=== PATIENT | male | born 1995 | race Caucasian/White ===

== ENCOUNTER 2016-03-21 11:36 | Emergency (ER) | payer OTHER ==
[~2016-03-21 11:36] MED LIST: CARAFATE1 G1 PO; CYCLOBENZAPRINE10 MG PO; FLEXERIL10 MG PO; HYDROXYZINE HCL25 MG PO; MEDROL DOSEPAK4 MG PO; MOTRIN600 MG PO; MOTRIN800 MG PO; Motrin,Rufen800 MG PO; PREDNISONE10 MG PO; TOPCARE OMEPRAZ20 MG PO; ZANTAC 300300 MG PO; ZOFRAN4 MG PO
[2016-03-21 12:14] VITALS: BP 158/88
[2016-03-21 12:34] LABS: BASO # 0.1 10*3/uL (0.0-0.1); BASO % 0.5 % (0.0-1.0); EOS # 1.3 10*3/uL (0.0-0.4); EOS % 9.3 % (1.0-4.0); HEMOGLOBIN 15.4 g/dl (14.0-18.0); LYMPH # 1.5 10*3/uL (1.3-4.4); LYMPH % 10.3 % (27.0-41.0); MEAN CORPUSCULAR HGB 28.7 pg (27.0-31.0); MEAN CORPUSCULAR HGB CONC 34.2 g/dl (33.0-37.0); MEAN PLATELET VOLUME 9.9 fl (9.6-12.3); MONO % 7.2 % (3.0-9.0); NEUT # 10.3 10*3/uL (2.3-7.9); NEUT % 72.4 % (47.0-73.0); PLATELET COUNT AUTOMATED 328 10*3/uL (130-400); RED BLOOD COUNT 5.36 10*6/uL (4.50-5.90); RED CELL DISTRI WIDTH 11.9 % (0-14.5); WHITE BLOOD COUNT 14.2 10*3/uL (4.8-10.8)
[2016-03-21 12:52] LABS: ALBUMIN 3.8 gm/dl (3.1-4.5); ALKALINE PHOSPHATASE 58 U/L (45-117); BILIRUBIN, TOTAL 0.4 mg/dl (0.2-1.0); BUN 11 mg/dl (7-24); CARBON DIOXIDE 29 mmol/L (21-32); CHLORIDE 104 mmol/L (98-107); EST GLOM FILT AFRICAN AMERICAN > 60 ml/min; GLUCOSE 106 mg/dL (65-99); POTASSIUM 4.4 mmol/L (3.5-5.1); SGOT/AST 17 IU/L (3-35); SGPT/ALT 43 U/L (12-78); SODIUM 140 mmol/L (136-145); TOTAL PROTEIN 7.8 gm/dL (6.4-8.2)
[2016-03-21 12:54] LABS: TROPONIN I < 0.015 ng/ml (<0.5)
[2016-03-21] MEDS ORDERED: ZITHROMAX250 MG PO (14:06)
[2016-03-21] MEDS ORDERED: ALBUTEROL2.5 MG/0.5 INH (14:06)
[2016-03-21] MEDS ORDERED: MEDROL DOSEPAK4 MG PO (14:06)
== END 2016-03-21 14:43 | disposition home or self-care (01) ==
LOC: ED 11:36
PROVIDERS: Nurse Practitioner Family
DX: J20.9 Acute bronchitis, unspecified (principal)

== ENCOUNTER 2018-11-12 14:06 | Emergency (ER) | payer SELFPAY ==
[~2018-11-12] VITALS: Wt 140.6 kg
[~2018-11-12 14:06] MED LIST changes: +ALBUTEROL2.5 MG/0.5 INH; +ZITHROMAX250 MG PO
[2018-11-12 14:08] VITALS: BP 122/57
== END 2018-11-12 16:03 | disposition home or self-care (01) ==
LOC: ED 14:06
DX: S52.125A Nondisplaced fracture of head of left radius, initial encounter for closed fracture (principal); W11.XXXA Fall on and from ladder, initial encounter; Y93.89 Activity, other specified; Y92.89 Other specified places as the place of occurrence of the external cause; Y99.9 Unspecified external cause status

== ENCOUNTER → 2018-12-02 | Outpatient (CLI) | payer SELFPAY | END | disposition home or self-care (01) | LOC: ORTHO 00:48 | DX: S52.125D Nondisplaced fracture of head of left radius, subsequent encounter for closed fracture with routine healing (principal); X58.XXXD Exposure to other specified factors, subsequent encounter ==

== ENCOUNTER 2019-02-20 06:48 | Emergency (ER) | payer SELFPAY ==
[~2019-02-20] VITALS: Ht 180.3 cm; Wt 140.6 kg
[2019-02-20 06:49] VITALS: BP 150/85
== END 2019-02-20 09:28 | disposition home or self-care (01) ==
LOC: ED 06:48
DX: S50.02XA Contusion of left elbow, initial encounter (principal); W10.8XXA Fall (on) (from) other stairs and steps, initial encounter; Y93.89 Activity, other specified; Y92.89 Other specified places as the place of occurrence of the external cause; Y99.8 Other external cause status

== ENCOUNTER 2019-03-07 20:20 | Emergency (ER) | payer SELFPAY ==
[~2019-03-07] VITALS: Ht 182.8 cm; Wt 1050.1 kg
[2019-03-07 20:24] VITALS: BP 136/71
[2019-03-07] MEDS ORDERED: FLONASE ALLERG9.9 ML NAS (21:26)
[2019-03-07] MEDS ORDERED: ZYRTEC10 MG PO (21:26)
[2019-03-07] MEDS ORDERED: AMOXICILLIN500 M2 PO (21:26)
== END 2019-03-07 21:42 | disposition home or self-care (01) ==
LOC: ED 20:20
DX: J32.0 Chronic maxillary sinusitis (principal); J32.1 Chronic frontal sinusitis; K08.89 Other specified disorders of teeth and supporting structures; J45.909 Unspecified asthma, uncomplicated

== ENCOUNTER 2019-07-23 18:23 | Emergency (ER) | payer SELFPAY ==
[~2019-07-23] VITALS: Ht 182.8 cm; Wt 140.6 kg
[~2019-07-23 18:23] MED LIST changes: +AMOXICILLIN500 M2 PO; +FLONASE ALLERG9.9 ML NAS; +ZYRTEC10 MG PO
[2019-07-23 18:30] VITALS: BP 138/97
[2019-07-23] MEDS ORDERED: Motrin,Rufen800 MG PO (20:19)
== END 2019-07-23 20:23 | disposition home or self-care (01) ==
LOC: ED 18:23
DX: S46.912A Strain of unspecified muscle, fascia and tendon at shoulder and upper arm level, left arm, initial encounter (principal); S59.902A Unspecified injury of left elbow, initial encounter; Z79.899 Other long term (current) drug therapy; X58.XXXA Exposure to other specified factors, initial encounter; Y93.89 Activity, other specified; Y92.89 Other specified places as the place of occurrence of the external cause; Y99.8 Other external cause status

== ENCOUNTER 2019-07-26 01:30 | Emergency (ER) | payer SELFPAY ==
[~2019-07-26] VITALS: Ht 182.8 cm; Wt 140.6 kg
[2019-07-26 01:35] VITALS: BP 141/85
== END 2019-07-26 02:43 | disposition home or self-care (01) ==
LOC: ED 01:30
DX: M25.512 Pain in left shoulder (principal); Z79.899 Other long term (current) drug therapy

== ENCOUNTER 2019-11-12 09:05 | Emergency (ER) | payer SELFPAY ==
[~2019-11-12] VITALS: Ht 182.8 cm; Wt 145.1 kg
[2019-11-12 09:10] VITALS: BP 148/83
[2019-11-12] MEDS ORDERED: PREDNISONE50 MG PO (10:43)
[2019-11-12] MEDS ORDERED: PROAIR HFA8.5 GM INH (10:43)
[2019-11-12] MEDS ORDERED: ZITHROMAX250 MG PO (10:43)
== END 2019-11-12 10:44 | disposition home or self-care (01) ==
LOC: ED 09:05
DX: J40 Bronchitis, not specified as acute or chronic (principal); Z79.899 Other long term (current) drug therapy

== ENCOUNTER 2019-11-17 22:09 | Inpatient (IN) | payer SELFPAY ==
[~2019-11-17] VITALS: Ht 182.8 cm; Wt 147.6 kg
[~2019-11-17 22:09] MED LIST changes: +PREDNISONE50 MG PO; +PROAIR HFA8.5 GM INH
[2019-11-17 22:15] VITALS: BP 178/97
[2019-11-17 22:51] LABS: BASO # 0.1 10*3/uL (0.0-0.1); BASO % 0.6 % (0.0-1.0); EOS # 1.7 10*3/uL (0.0-0.4); EOS % 10.4 % (1.0-4.0); HEMATOCRIT 43.4 % (42.0-52.0); LYMPH # 1.7 10*3/uL (1.3-4.4); LYMPH % 10.3 % (27.0-41.0); MEAN CELL VOLUME 86.8 fl (80.0-94.0); MEAN CORPUSCULAR HGB 28.6 pg (27.0-31.0); MEAN CORPUSCULAR HGB CONC 32.9 g/dl (33.0-37.0); MEAN PLATELET VOLUME 9.6 fl (9.6-12.3); MONO # 1.3 10*3/uL (0.1-1.0); MONO % 8.1 % (3.0-9.0); NEUT # 11.3 10*3/uL (2.3-7.9); NEUT % 70.1 % (47.0-73.0); PLATELET COUNT AUTOMATED 311 10*3/uL (130-400); WHITE BLOOD COUNT 16.1 10*3/uL (4.8-10.8)
[2019-11-17 23:09] LABS: ALBUMIN 3.7 gm/dl (3.1-4.5); ALKALINE PHOSPHATASE 49 U/L (45-117); BUN 15 mg/dl (7-24); CHLORIDE 106 mmol/L (98-107); CREATININE 1.12 mg/dL (0.70-1.30); POTASSIUM 3.5 mmol/L (3.5-5.1); SGOT/AST 19 IU/L (3-35); SGPT/ALT 49 U/L (12-78); SODIUM 141 mmol/L (136-145); TOTAL PROTEIN 7.3 gm/dL (6.4-8.2)
--- NOTE | 2019-11-18 00:38 | NUR ---
PT CONTINUES TO HAVE AUDIBLE INS AND EXPIRATORY WHEEZING AND HARSH COUGH. IVF AND MAG SULFATE INFUSING PER ORDERS. TELE MONITOR INTACT. CALL LIGHT IN REACH. NO FURTHER COMPLAINTS.
[2019-11-18 00:41] VITALS: BP 144/78
[2019-11-18 02:20] VITALS: BP 145/87
--- NOTE | 2019-11-18 02:20 | NUR ---
A 24, admitted to , under the services of TARAS Hernandez DO with a diagnosis of ASTHMA EXACERBATION. Chief complaint is SHORTNESS OF BREATH\. Patient arrived via bed from ER. Monitor applied. Initial assessment completed. Vital signs taken and recorded. TARAS HERNANDEZ DO notified of admission to the unit. Orders received. See assessment for past medical history, medications and allergies. Patient and/or family oriented to unit. [facility] visitation policy reviewed. Clothing/patient valuable form completed. FLY RAYMOND
--- NOTE | 2019-11-18 02:30 | NUR ---
PT TRANSFERRED TO FLOOR WITH IVF INFUSING PER ORDERS.
--- NOTE | 2019-11-18 02:45 | NUR ---
DR. VERDUZCO NOTIFIED OF COMPLETE HOME MEDICATIONS.
--- NOTE | 2019-11-18 04:53 | NUR ---
DR. BEVERLY NOTIFIED OF CRITICAL LACTIC OF 2.2.
--- NOTE | 2019-11-18 06:00 | NUR ---
IN TO SEE PT, PT LYING IN BED WITH EYES CLOSED. NO COMPLAINTS. CALL LIGHT IN REACH
[2019-11-18 08:00] VITALS: BP 151/63
--- NOTE | 2019-11-18 09:21 | NUR ---
CALLED IN AND IS RECOMMENDING PATIENT TO BE UNDER COVID PRECAUTIONS. PARTNERSHIP MANAGER SCOT NOTIFIED AT THIS TIME.
--- NOTE | 2019-11-18 09:27 | NUR ---
AWARE OF CONSULT.
--- NOTE | 2019-11-18 11:01 | NUR ---
PT ON THE FLOOR AT THIS TIME
--- NOTE | 2019-11-18 11:35 | NUR ---
ASSESSMENT COMPLETE WITHOUT INCIDENCE. PT DENIES BEING SOB AND STATES "I FEEL GOOD ENOUGH THAT I COULD TAKE OFF THE OXYGEN MASK". UPDATED PT ON WHY HE IS IN ISOLATION, HE HAS NO QUESTIONS AT THIS TIME. CALL LIGHT WITHIN REACH, WILL CONTINUE TO MONITOR
[2019-11-18 12:00] VITALS: BP 149/75
--- NOTE | 2019-11-18 13:03 | NUR ---
SPOKE TO DR PRICE REGARDING PT INFORMATION, WILL ADD ORDERS DESIRED
--- NOTE | 2019-11-18 13:08 | NUR ---
DR PRICE STATES TO BUMP O2 UP TO 5L NC, AND THEN CHECK ABG IN ONE HOUR
--- NOTE | 2019-11-18 13:09 | NUR ---
SPOKE TO BHAVIK FROM RESPIRATORY TO LET HER KNOW THAT THE OXYGEN IS MOVED UP TO 5L NC AND ABG AT 1400
[2019-11-18 14:32] LABS: ABG BASE EXCESS -0.5 mmol/L (-2.0-2.0); ARTERIAL BLOOD GAS PH 7.434 (7.35-7.45)
--- NOTE | 2019-11-18 15:18 | NUR ---
CALLED DR PRICE WITH ABG, LDH, D-DIMER AND FERRITIN RESULTS. HE STATES TO MAKE HIS LOVENOX BID. CONTINUE LABS TOMORROW
[2019-11-18 16:00] VITALS: BP 150/98
[2019-11-18 20:00] VITALS: BP 148/69
--- NOTE | 2019-11-18 21:25 | NUR ---
PATIENT COMPLIANT WITH PRONING
[2019-11-18 23:53] LABS: BILIRUBIN Negative; BLOOD Negative (NEGATIVE); CLARITY Clear (CLEAR); COLOR Yellow (YELLOW); GLUCOSE 1+; KETONE Negative; LEUKO ESTERASE Negative (NEGATIVE); NITRITE Negative (NEGATIVE); SPECIFIC GRAVITY 1.015 (1.001-1.030)
[2019-11-18 23:59] LABS: BACTERIA TRACE; EPITHELIAL CELLS 0-2; RBC 0-2 rbc/hpf (0-2); WBC 0-2 wbc/hpf (0-5)
[2019-11-19] VITALS: BP 151/85
[2019-11-19 06:17] LABS: HEMATOCRIT 44.4 % (42.0-52.0); MEAN CELL VOLUME 86.2 fl (80.0-94.0); MEAN CORPUSCULAR HGB CONC 32.4 g/dl (33.0-37.0); MEAN PLATELET VOLUME 9.8 fl (9.6-12.3); PLATELET COUNT AUTOMATED 349 10*3/uL (130-400); RED BLOOD COUNT 5.15 10*6/uL (4.50-5.90); RED CELL DISTRI WIDTH 12.4 % (0-14.5)
[2019-11-19 06:39] LABS: ALBUMIN 3.5 gm/dl (3.1-4.5); ALKALINE PHOSPHATASE 47 U/L (45-117); BUN 12 mg/dl (7-24); CHLORIDE 106 mmol/L (98-107); CHOLESTEROL 145 mg/dL (<200); CREATININE 0.88 mg/dL (0.70-1.30); HDL CHOLESTEROL 66 mg/dl (40-60); LDH 174 U/L (87-241); LDL CHOLESTEROL 65 mg/dL (9-159); SGOT/AST 15 IU/L (3-35); SGPT/ALT 51 U/L (12-78); SODIUM 138 mmol/L (136-145); TOTAL PROTEIN 7.3 gm/dL (6.4-8.2); TRIGLYCERIDES 72 mg/dl (<150); VLDL CHOLESTEROL 14 mg/dL (6-40)
[2019-11-19 06:54] LABS: PLATELET SUFFICIENCY NORMAL (NORMAL); TOTAL CELLS COUNTED 100 #CELLS
[2019-11-19 07:18] LABS: VITAMIN D, 25-HYDROXY 25.7 ng/mL (30-100)
[2019-11-19 07:19] LABS: FERRITIN 87.4 ng/mL (22.0-322.0)
[2019-11-19 08:00] VITALS: BP 114/82
--- NOTE | 2019-11-19 09:17 | NUR ---
Awake, alert and oriented. pleasent. Questioning when he would be discharged. stated he needed to let his employer know. Sputum obtained and sent.
[2019-11-19 12:00] VITALS: BP 139/80
[2019-11-19 16:00] VITALS: BP 158/92
[2019-11-19 20:00] VITALS: BP 145/70
--- NOTE | 2019-11-19 20:04 | NUR ---
Decreased pts O2 to 3L
[2019-11-19 23:51] VITALS: BP 140/64
[2019-11-20 05:49] LABS: ALBUMIN 3.5 gm/dl (3.1-4.5); ALKALINE PHOSPHATASE 47 U/L (45-117); BUN 13 mg/dl (7-24); CHLORIDE 105 mmol/L (98-107); CREATININE 0.89 mg/dL (0.70-1.30); POTASSIUM 3.5 mmol/L (3.5-5.1); SGOT/AST 11 IU/L (3-35); SGPT/ALT 46 U/L (12-78); SODIUM 140 mmol/L (136-145); TOTAL PROTEIN 7.5 gm/dL (6.4-8.2)
[2019-11-20 06:04] LABS: BASO % 0.2 % (0.0-1.0); EOS # 0.1 10*3/uL (0.0-0.4); EOS % 0.3 % (1.0-4.0); HEMATOCRIT 45.9 % (42.0-52.0); LYMPH # 2.1 10*3/uL (1.3-4.4); LYMPH % 12.2 % (27.0-41.0); MEAN CELL VOLUME 87.4 fl (80.0-94.0); MEAN CORPUSCULAR HGB 27.6 pg (27.0-31.0); MEAN CORPUSCULAR HGB CONC 31.6 g/dl (33.0-37.0); MEAN PLATELET VOLUME 9.8 fl (9.6-12.3); MONO # 1.2 10*3/uL (0.1-1.0); MONO % 7.1 % (3.0-9.0); NEUT # 13.9 10*3/uL (2.3-7.9); NEUT % 79.2 % (47.0-73.0); PLATELET COUNT AUTOMATED 351 10*3/uL (130-400); RED BLOOD COUNT 5.25 10*6/uL (4.50-5.90); RED CELL DISTRI WIDTH 12.6 % (0-14.5); WHITE BLOOD COUNT 17.5 10*3/uL (4.8-10.8)
[2019-11-20 08:00] VITALS: BP 132/88; BP 140/72
--- NOTE | 2019-11-20 09:00 | NUR ---
Nib Assembler in to talk to patient. Patient states lives at home with family. There are no steps in the home. Physician: none Pharmacy: [facility] Home health services: none Patient's level of ADLs: INDEPENDENT Patient has working utilities: all working DME: none Follow-up physician's appointment after d/c: will be made by hospitalist nurse director upon discharge Does patient want to access PORTAL?: no Discharge plan discussed with patient, he lives at home, is independent in adls and ambulation, works, drives, he stated he will return home when discharged and denies any home needs, case management will follow. RINKU DAWN
[2019-11-20 12:00] VITALS: BP 137/69
[2019-11-20 16:00] VITALS: BP 152/84
--- NOTE | 2019-11-20 19:56 | NUR ---
24 HR chart check completed.
[2019-11-20 20:00] VITALS: BP 148/85
--- NOTE | 2019-11-20 20:30 | NUR ---
RESTING IN BED. NO DISTRESS NOTED. RESPIRATIONS EASY. VSS. LUNGS DIMINISHED, CLEAR. PULSE OX 96% RA. INFREQUENT COUGH. CALL LIGHT WITHIN REACH. NO VOICED COMPLAINTS
[2019-11-21] VITALS: BP 159/79
--- NOTE | 2019-11-21 | NUR ---
RESTING IN BED WITH NO ACUTE DISTRESS NOTED. RESPIRATIONS EASY. PULSE OX 96% RA WITH CONT PULSE OX MAINTAINED. CALL LIGHT WITHIN REACH. NO VOICED COMPLAINTS
--- NOTE | 2019-11-21 06:00 | NUR ---
RESTED THROUGHOUT NIGHT WITH NO DISTRESS NOTED. RESPIRATIONS EASY. CONT PULSE OX WITH PATIENT MAINTAINING SATS >92% ON ROOM AIR. CALL LIGHT WITHIN REACH. NO VOICED COMPLAINTS THIS SHIFT
--- NOTE | 2019-11-21 07:42 | NUR ---
COVID CAME BACK NEGATIVE. PT PLACED INTO STANDARD PRECAUTIONS.
[2019-11-21 08:00] VITALS: BP 145/82
--- NOTE | 2019-11-21 09:00 | NUR ---
case management visits with patient, he will return home when discharged, denies any home needs
[2019-11-21] MEDS ORDERED: PREDNISONE10 MG PO (10:37)
[2019-11-21] MEDS ORDERED: VITAMIN D350 MC2 PO (10:37)
[2019-11-21] MEDS ORDERED: LEVOFLOXACIN500 MG PO (10:37)
--- NOTE | 2019-11-21 11:19 | NUR ---
Discharge instructions reviewed with patient/family. Patient receptive and verbalizes understanding. Follow-up care arranged. Written instructions given to patient/family. BIBI SOLIS
== END 2019-11-21 11:19 | disposition home or self-care (01) | DRG 871 ==
LOC: ED 22:09 → EDHOLD 11-18 01:56 → 4E 11-18 01:56 → 5E 11-18 02:05 → 4E 11-18 09:26
PROVIDERS: Emergency Medicine Emergency Medical Services; Family Medicine; Internal Medicine; Internal Medicine Critical Care Medicine; ADMIT Emergency Medicine; ATTEND Emergency Medicine
DX: A41.9 Sepsis, unspecified organism (principal); J18.9 Pneumonia, unspecified organism; J96.01 Acute respiratory failure with hypoxia; J45.41 Moderate persistent asthma with (acute) exacerbation; Z68.42 Body mass index [BMI] 45.0-49.9, adult; R65.20 Severe sepsis without septic shock; J20.9 Acute bronchitis, unspecified; F12.90 Cannabis use, unspecified, uncomplicated; E66.01 Morbid (severe) obesity due to excess calories; G47.33 Obstructive sleep apnea (adult) (pediatric); R73.9 Hyperglycemia, unspecified; Z20.828 Contact with and (suspected) exposure to other viral communicable diseases; Z83.3 Family history of diabetes mellitus; Z79.899 Other long term (current) drug therapy

== ENCOUNTER 2019-12-11 09:13 | Observation (INO) | payer SELFPAY ==
[~2019-12-11] VITALS: Ht 182.9 cm; Wt 151.1 kg
--- NOTE | 2019-12-11 11:29 | NUR ---
PT STATES IN HE FEELS BETTER AFTER TREATMENT.
--- NOTE | 2019-12-11 14:55 | NUR ---
Time: 1454 A 24 year old MALE admitted to 5E under services of HUONG MAS DO. Pt. arrived via wheel chair from ER. Chief complaint: SHORTNESS OF BREATH AND WHEEZING. CESAR BASS
--- NOTE | 2019-12-11 17:30 | NUR ---
SPOKE WITH REGARDING CONSULT AND ORDERS RECEIVED.
--- NOTE | 2019-12-11 19:30 | NUR ---
PATIENT RESTING IN BED WATCHING TV. AUDIBLE WHEEZES THROUGHOUT. C/O CLEAR PRODUCTIVE COUGH. BED IN LOWEST POSITION, CALL LIGHT IN REACH
--- NOTE | 2019-12-12 00:19 | NUR ---
OXYGEN INCREASED TO 4LITERS FOR PULSE OX 90%
--- NOTE | 2019-12-12 05:47 | NUR ---
PATIENT RESTED WELL THROUGH THE NIGHT. STATES HE IS FEELING A LITTLE BIT BETTER. DENIES NEEDS AT THIS TIME
--- NOTE | 2019-12-12 11:52 | NUR ---
Battalion Fire Chief in to talk to patient. Patient states lives at HOME with FATHER. There are 4 steps in the home. Physician: NONE AT THIS TIME Pharmacy: [facility] Home health services: NONE Patient's level of ADLs: INDEPENDENT Patient has working utilities: YES DME: NONE AT THIS TIME Follow-up physician's appointment after d/c: WILL FIND MD AFTER DISCHARGE Does patient want to access PORTAL?: NO Discharge plan PT LIVES AT HOME WITH HIS FATHER AND IS INDEPENDENT IN HIS CARE. STATES HE WAS SEEN BY [employer] IN [employer] FOR MEDICA[employer] AND HAS THE PAPER WORK TO FILL OUT. ALST STATES HE IS GOING TO TALK TO HIS EMPLOYER ABOUT GETTIING INSURANCE. PT HAS NO PCP AT THIS TIME. STATES HE WILL FIND ONE AFTER DISCHARGE. STATES HE MIGHT GO TO THE ONE HIS FATHER GOES TO. PT ALSO STATES HE HAS A CPAP MACHINE BUT IT GOT LOST IN A MOVE. HE ALSO THINKS HE NEEDS A NEBULIZER AND A PULSE OX BUT UNDERSTAND HE CAN NOT GET THINGS UNTIL HE HAS INSURANCE. WILL CONTINUE TO FOLLOW. STATES HE WILL HAVE A RIDE HOME.. BAM CARRANZA
--- NOTE | 2019-12-12 16:06 | NUR ---
PULSE OX ON R/A AT REST 93%. HEART RATE 118. B/P 144/68. PT. AMBULATED IN THE [place] ON R/A, PULSE OX WAS 94%. PT. TOLERATED WELL. RN NOTIFIED OF RESULTS. I WILL CALL DR. ARGUELLES WITH RESULTS.
[2019-12-13 08:00] VITALS: BP 150/72
--- NOTE | 2019-12-13 13:39 | NUR ---
Discharge instructions reviewed with patient. Patient receptive and verbalizes understanding. Follow-up care arranged. Written instructions given to patient. PATIENT DISCHARGED TO [facility], AMBULATORY, FOR TRANSPORT HOME BY PRIVATE VEHICLE WITH HIS FAMILY. LEANN MCDANIEL
== END 2019-12-13 20:06 | disposition home or self-care (01) ==
LOC: ED 09:13 → EDHOLD 12:04 → 5E 13:35
PROVIDERS: ADMIT Internal Medicine; ATTEND Internal Medicine
DX: J45.901 Unspecified asthma with (acute) exacerbation (principal); R00.0 Tachycardia, unspecified; D72.829 Elevated white blood cell count, unspecified; J96.00 Acute respiratory failure, unspecified whether with hypoxia or hypercapnia; R65.10 Systemic inflammatory response syndrome (SIRS) of non-infectious origin without acute organ dysfunction; E11.65 Type 2 diabetes mellitus with hyperglycemia

== ENCOUNTER 2019-12-16 11:11 | Emergency (ER) | payer SELFPAY ==
[~2019-12-16] VITALS: Ht 182.8 cm; Wt 145.1 kg
[~2019-12-16 11:11] MED LIST changes: +LEVOFLOXACIN500 MG PO; +VITAMIN D350 MC2 PO
[2019-12-16 11:18] VITALS: BP 156/92
[2019-12-16] MEDS ORDERED: IBUPROFEN600 MG PO (11:50)
== END 2019-12-16 13:01 | disposition home or self-care (01) ==
LOC: ED 11:11
DX: S23.41XA Sprain of ribs, initial encounter (principal); Z79.899 Other long term (current) drug therapy; X58.XXXA Exposure to other specified factors, initial encounter; Y93.89 Activity, other specified; Y92.89 Other specified places as the place of occurrence of the external cause; Y99.8 Other external cause status

== ENCOUNTER → 2020-01-05 | Outpatient (CLI) | payer SELFPAY ==
[~2020-01-05] MED LIST changes: +IBUPROFEN600 MG PO
== END | disposition home or self-care (01) ==
LOC: RESCLI 02:13
PROVIDERS: ATTEND Family Medicine
DX: J45.30 Mild persistent asthma, uncomplicated (principal); R73.03 Prediabetes; E66.01 Morbid (severe) obesity due to excess calories; Z76.89 Persons encountering health services in other specified circumstances; Z23 Encounter for immunization; Z68.42 Body mass index [BMI] 45.0-49.9, adult

== ENCOUNTER → 2020-12-13 | Outpatient (CLI) | payer OTHER | END | disposition home or self-care (01) | LOC: COVID19 15:09 | PROVIDERS: ATTEND Student in an Organized Health Care Education/Training Program | DX: U07.1 COVID-19 (principal) ==

== ENCOUNTER → 2021-12-11 | Outpatient (CLI) | payer OTHER | END | disposition home or self-care (01) | LOC: RESCLI 16:28 | PROVIDERS: ATTEND Emergency Medicine | DX: Z23 Encounter for immunization (principal); Z01.89 Encounter for other specified special examinations; J45.30 Mild persistent asthma, uncomplicated; E55.9 Vitamin D deficiency, unspecified; R73.09 Other abnormal glucose; Z79.899 Other long term (current) drug therapy ==

== ENCOUNTER → 2022-06-15 | Outpatient (CLI) | payer OTHER ==
[2022-06-15 10:41] LABS: BASO # 0.1 10*3/uL (0.0-0.1); BASO % 0.7 % (0.0-1.0); EOS # 1.5 10*3/uL (0.0-0.4); LYMPH # 1.7 10*3/uL (1.3-4.4); LYMPH % 14.7 % (27.0-41.0); MEAN CELL VOLUME 87.6 fl (80.0-94.0); MEAN CORPUSCULAR HGB 29.7 pg (27.0-31.0); MEAN CORPUSCULAR HGB CONC 33.9 g/dl (33.0-37.0); MEAN PLATELET VOLUME 9.7 fl (9.6-12.3); MONO # 0.8 10*3/uL (0.1-1.0); NEUT # 7.6 10*3/uL (2.3-7.9); NEUT % 64.3 % (47.0-73.0); PLATELET COUNT AUTOMATED 320 10*3/uL (130-400); RED BLOOD COUNT 5.25 10*6/uL (4.50-5.90); WHITE BLOOD COUNT 11.8 10*3/uL (4.8-10.8)
[2022-06-15 13:17] LABS: ALKALINE PHOSPHATASE 50 U/L (46-116); BUN 10 mg/dl (9-23); CHLORIDE 105 mmol/L (98-107); CHOLESTEROL 115 mg/dL (<200); LDL CHOLESTEROL 49 mg/dL (9-159); POTASSIUM 4.3 mmol/L (3.4-5.1); SGPT/ALT 41 U/L (10-49); TOTAL PROTEIN 7.2 gm/dL (6.0-8.0); TRIGLYCERIDES 98 mg/dl (<150)
== END | disposition home or self-care (01) ==
LOC: RESCLI 01:49
PROVIDERS: Student in an Organized Health Care Education/Training Program; ATTEND Internal Medicine
DX: R73.09 Other abnormal glucose (principal); J45.30 Mild persistent asthma, uncomplicated; E55.9 Vitamin D deficiency, unspecified; G43.909 Migraine, unspecified, not intractable, without status migrainosus; F39 Unspecified mood [affective] disorder; Z82.49 Family history of ischemic heart disease and other diseases of the circulatory system; Z79.899 Other long term (current) drug therapy